=== PATIENT | male | born 1940 | race Hispanic/Latino ===

== ENCOUNTER 2021-07-06 07:26 | Day surgery (SDC) | payer OTHER ==
[2021-06-30 12:28] LABS: APPEARANCE,URINE Cloudy (CLEAR); BILIRUBIN,URINE Negative (NEGATIVE); COLOR,URINE Yellow (YELLOW); GLUCOSE, URINE (UA) Negative (NEGATIVE); KETONES,URINE 15 mg/dL (NEGATIVE); LEUKOCYTE ESTERASE ,URINE Large (NEGATIVE); NITRATE,URINE Positive (NEGATIVE); OCCULT BLOOD,URINE Small (NEGATIVE); PROTEIN,URINE POS 1+ mg/dL (NEGATIVE)
[2021-06-30 12:56] LABS: BACTERIA,URINE Many /HPF (None Seen); SQUAMOUS EPITHELIAL CELL,UR Rare /HPF (0-2)
[2021-06-30 13:06] LABS: BASOPHILS % (AUTO) 0.2 % (0.0-5.0); EOSINOPHILS % (AUTO) 1.4 % (0.0-8.0); HEMATOCRIT 42.5 % (42-54); LYMPHOCYTES % (AUTO) 17.9 % (21.0-51.0); MEAN CORPUSCULAR HEMOGLOBIN 28.8 pg (27.0-33.0); MONOCYTES % (AUTO) 8.8 % (3.0-13.0); NEUTROPHILS % (AUTO) 71.3 % (40.0-77.0); PLATELET COUNT (AUTO) 178 K/uL (130-400); RED BLOOD CELL COUNT(AUTO) 4.72 MIL/uL (4.50-6.20); RED CELL DISTRIBUTION WIDTH 13.4 % (11.0-15.5); WHITE BLOOD COUNT (AUTO) 4.9 K/uL (4.8-10.8)
[2021-06-30 13:17] LABS: CREATININE 1.3 mg/dL (0.5-1.5); POTASSIUM 4.8 mmol/L (3.5-5.1)
[2021-06-30 13:23] LABS: INR 1.03 (0.85-1.15); PROTHROMBIN TIME 11.2 SEC (9.6-11.6)
[2021-07-05 10:34] VITALS: BP 156/68
[~2021-07-06] VITALS: Ht 170.2 cm; Wt 65.9 kg
[2021-07-06] VITALS (15 sets, daily range): BP systolic 126–153; BP diastolic 70–88
[~2021-07-06 07:26] MED LIST: AMLO-257 PO; CEFTRIAXONE 1G VIAL IVP SCH; GENTAMICIN SULFATE 0 MG in 0.9%NACL 100ML 100 ML IV SCH; LEVO500T89 PO; SIMV-43 PO; TAMS-1 PO
[2021-07-06] MEDS ORDERED: LACTATED RINGERS 1000ML 1,000 ML IV ONE (08:36)
[2021-07-06] MEDS ORDERED: DEXAMETHASONE SOD PHOSPHATE 10MG/ML 1ML VIAL ONE (08:58)
[2021-07-06] MEDS ORDERED: PROPOFOL 10 MG/ML 20ML VIAL IV ONE (08:58)
[2021-07-06] MEDS ORDERED: NEOSTIGMINE 5MG/5ML SYR IV ONE (08:58)
[2021-07-06] MEDS ORDERED: GLYCOPYRROLATE 1 MG/5 ML SYRINGE ONE (08:58)
[2021-07-06] MEDS ORDERED: ONDANSETRON 4MG INJ ONE (08:58)
[2021-07-06] MEDS ORDERED: MIDAZOLAM HCL 1 MG/ML 2ML VIAL ONE (08:58)
[2021-07-06] MEDS ORDERED: SUCCINYLCHOLINE 200MG/10ML SYR ONE (08:58)
[2021-07-06] MEDS ORDERED: LIDOCAINE PF 100MG/5ML (2%) SYRINGE 5ML ONE (08:58)
[2021-07-06] MEDS ORDERED: ROCURONIUM 10MG/1ML SYR 10 MG/ML ML ONE (08:59)
[2021-07-06] MEDS ORDERED: FENTANYL CITRATE PF 50 MCG/1 ML 2ML VIAL ONE (08:59)
[2021-07-06] MEDS ORDERED: GENTAMICIN SULFATE 320 MG in 0.9%NACL 100ML 100 ML IV SCH (09:30)
[2021-07-06] MEDS ORDERED: GENTAMICIN SULFATE 80 MG/2 ML VIAL ONE (09:34)
[2021-07-06] MEDS ORDERED: GENTAMICIN 80 MG/NS 100 ML PB 0 ML IV ONE (09:34)
== END 2021-07-06 13:10 | disposition home or self-care (01) ==
LOC: DAH 07:26
PROVIDERS: ATTEND Urology
DX: N40.1 Benign prostatic hyperplasia with lower urinary tract symptoms (principal); Z20.822 Contact with and (suspected) exposure to COVID-19; R33.8 Other retention of urine; N32.89 Other specified disorders of bladder; I10 Essential (primary) hypertension; E78.5 Hyperlipidemia, unspecified; J45.909 Unspecified asthma, uncomplicated; Z79.01 Long term (current) use of anticoagulants
CPT/HCPCS: 36415 ×2; 52648; 71045; 80048; 81001; 85025; 85610; 85730; 87088; 87635; 93005; A4213; A4215; A4221; A4222; A4223; A4335; A4354; A4358 ×2; A4663; A4930; A6260; C9803; J0330; J0696; J1100; J1580; J2001; J2250; J2405; J2704; J2710; J3010; J3490; J7030; J7120 ×2

== ENCOUNTER → 2022-01-10 | Outpatient (CLI) | payer OTHER ==
[~2022-01-10] MED LIST changes: -CEFTRIAXONE 1G VIAL IVP SCH; -GENTAMICIN SULFATE 0 MG in 0.9%NACL 100ML 100 ML IV SCH; -LEVO500T89 PO; +LEVO500T90 PO
== END | disposition home or self-care (01) ==
LOC: RAH 09:20
PROVIDERS: ATTEND Family Medicine
DX: N44.2 Benign cyst of testis (principal); N50.3 Cyst of epididymis; N43.3 Hydrocele, unspecified; N50.89 Other specified disorders of the male genital organs
CPT/HCPCS: 76870